=== PATIENT | male | born 2000 | race African-American/Black ===

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

== ENCOUNTER 2023-05-12 01:41 | Emergency (ER) | payer BC ==
[~2023-05-12] VITALS: Ht 190.5 cm; Wt 113.4 kg
[2023-05-12] MEDS ORDERED: EPIN0.3P3 IM ×2 (02:39→03:42)
[2023-05-12 03:44] VITALS: BP 133/89; TEMP 98.2; O2SAT 97
== END 2023-05-12 03:44 | disposition home or self-care (01) ==
LOC: ER 02:01
DX: T78.1XXA Other adverse food reactions, not elsewhere classified, initial encounter (principal); J45.909 Unspecified asthma, uncomplicated; Z91.018 Allergy to other foods; X58.XXXA Exposure to other specified factors, initial encounter